=== PATIENT | male | born 1985 | race Caucasian/White ===

== ENCOUNTER 2016-10-08 19:38 | Emergency (ER) | payer SELFPAY ==
[2016-10-08] MEDS ORDERED: AMOXicillin 250 MG CAP ONE (19:51)
[2016-10-08] MEDS ORDERED: HYDROcodone/Acetaminophen 10/325 mg Tablet ONE (19:51)
[2016-10-08] MEDS ORDERED: Dexamethasone 4 mg/ml Vial ONE (19:51)
--- NOTE | 2016-10-08 20:48 | ERRECORD ---
[facility] EMERGENCY RECORD HPI TOOTHACHE CHIEF COMPLAINT: Patient presents for evaluation of toothache. (19:49 MBRI) HISTORIAN: History provided by patient. (19:49 MBRI) LOCATION: Symptoms are localized, most severe to Right upper jaw and cheek region. (19:50 MBRI) QUALITY: Pain is dull in nature, described as aching. (19:49 MBRI) SEVERITY: Maximum severity of symptoms moderate, Currently symptoms are moderate. (19:49 MBRI) TIME COURSE: Gradual onset of symptoms, weeks. (19:49 MBRI) ASSOCIATED WITH: Denies any other complaints. (19:49 MBRI) EXACERBATED BY: Patient's condition exacerbated by chewing. (19:49 MBRI) RELIEVED BY: Patient's condition relieved by nothing. (19:49 MBRI) ROS (19:49 MBRI) CONSTITUTIONAL: Historian denies chills, denies fatigue, denies fever. EYES: Negative eye review of systems. ENT: Negative ears, nose, throat review of systems. CARDIOVASCULAR: Negative cardiovascular review of systems. RESPIRATORY: Negative respiratory review of systems. GI: Historian denies abdominal pain, denies diarrhea, denies nausea, denies vomiting. PAST MEDICAL HISTORY MEDICAL HISTORY: No past medical history. (19:48 DZAN) MALE SURGICAL HISTORY: Patient has no surgical history. (19:48 DZAN) PSYCHIATRIC HISTORY: No previous psychiatric history. (19:48 DZAN) SOCIAL HISTORY: Patient drinks socially, Patient denies drug use, Patient currently uses tobacco, smokes cigarettes, daily, Patient smokes 1 pack per day. (19:48 DZAN) NOTES: Nursing records reviewed, Agree with nursing records, Medication list reviewed. (19:49 MBRI) KNOWN ALLERGIES Shellfish Containing Products CURRENT MEDICATIONS (19:43 DZAN) None VITAL SIGNS VITAL SIGNS: BP: 141/85, Pulse: 96, Resp: 18 (Non-Labored), Temp: 97.8 (Oral), Pain: 7, O2 sat: 97 on Room Air, Time: 10/08/2016 19:41. (19:41 DZAN) BP: 115/79, Pulse: 91, Resp: 16 (Non-Labored), O2 sat: 98 on Room Air, Time: 10/08/2016 19:45. (19:45 DZAN) &a-1R&a+25V*p+0X*y7505C*c202B*c15G*c2P*p-0X&a-25V&a+1R Name: Alfred Rodríguez : 1985 M31 MedRec: [id number] AcctNum: [id number] Prepared: [facility] Oct 11, 2016 10:53 by Interface Page 1 of 3 D [facility] EMERGENCY RECORD PHYSICAL EXAM (19:49 MBRI) CONSTITUTIONAL: Vital signs reviewed, Patient appears non toxic, Patient alert and oriented to person, place and time. HEAD: Head exam normal, Patient describes pain as aching pain to right maxillary area, right mandibular jaw, with swelling noted to this area. No erythema noted. No fluctuence ntoed. EYES: Eye exam included findings of eyelids normal to inspection, Extraocular muscles intact. ENT: Ear exam normal, Nose exam normal, Pharynx exam normal, Uvula exam normal, Tonsil exam normal, Mouth exam included findings of, no lesions, no lacerations, Tongue not elevated, Teeth with, dental caries, fractures. NECK: Neck exam included findings of normal range of motion, Trachea midline, Thyroid normal, no cervical adenopathy. RESPIRATORY CHEST: Respiratory and chest exam normal. SKIN: Skin exam normal. LYMPHATIC: Lymphatic exam included findings of cervical nodes normal, Submandibular normal. MEDICATION ADMINISTRATION SUMMARY Drug Name: Decadron injection, Dose Ordered: 10 mg, Route: IV Push, Status: Canceled, Time: 19:50 10/08/2016, Drug Name: *Decadron injection, Dose Ordered: 10 mg, Route: Intramuscular, Status: Given, Time: 19:59 10/08/2016, Drug Name: Amoxil, Dose Ordered: 1000 mg, Route: Oral, Status: Given, Time: 19:57 10/08/2016, Drug Name: HYDROcodone-acetaminophen, Dose Ordered: 10/325 mg, Route: Oral, Status: Given, Time: 19:57 10/08/2016, *Additional information available in notes, Detailed record available in Medication Service section. PROBLEM LIST No recorded problems DIAGNOSIS (20:09 MBRI) FINAL: PRIMARY: dental abscess with facial cellulitis. PRESCRIPTION (19:54 MBRI) acetaminophen-codeine: TABLET : 300 mg-30 mg : ORAL : Quantity: 1 Unit: tab(s) Route: ORAL Schedule: every 4 hours prn Dispense: 20 May substitute. Refills: No Refills . NOTES: No refills. Motrin: TABLET : 800 mg : ORAL : Quantity: 1 Unit: tab(s) Route: ORAL Schedule: every 8 hours PRN Dispense: 30 May substitute. Refills: No Refills . NOTES: ^s=No refills No refills. PC Pen V K: TABLET : 500 mg : ORAL : Quantity: 1 Unit: &a-1R&a+25V*p+0X*h3983Y*c202B*c15G*c2P*p-0X&a-25V&a+1R Name: Alfred Rodríguez : 1985 2 MedRec: [id number] AcctNum: [id number] Prepared: SatOct 11, 2016 10:53 by Interface Page 2 of 3 pMD [facility] EMERGENCY RECORD tab(s) Route: ORAL Schedule: 4 times a day Dispense: 40 May substitute. Refills: No Refills . NOTES: ^s=^s=No refills No refills No refills. DISPOSITION PATIENT: Disposition Type: Discharge, Disposition: *Discharge Home, Condition: Fair. (20:09 BIRD) Patient left the department. (20:24 IVANNA) Mccann: IVANNA=USAMA Villaseñor, Jonas ROMANRI=DO Burr Matthew &a-1R&a+25V*p+0X*f3350S*c202B*c15G*c2P*p-0X&a-25V&a+1R Name: Alfred Rodríguez : 1985 M31 MedRec: [id number] AcctNum: [id number] Prepared: SatOct 11, 2016 10:53 by Interface Page 3 of 3 pMD MTDD
--- NOTE | 2016-10-08 21:02 | PICIS ---
[facility] EMERGENCY RECORD TRIAGE (SatOct 08, 2016 19:42 DZAN) TRIAGE NOTES: PT REPOTS TOOTHACHE X1 WEEK. (SatOct 08, 2016 19:42 DZAN) PATIENT: NAME: Alfred Rodríguez, AGE: 31, GENDER: male, : Sat1985, TIME OF GREET: SatOct 08, 2016 19:39, PREFERRED LANGUAGE: Lithuanian, ETHNICITY: Not or , ECODE BILLING MAP: [facility], SSN: [id number], KG WEIGHT: 81.65, , , PERSON ID: [id number], PAYMENT: [employer] Self Pay, PCP: NONE. (SatOct 08, 2016 19:42 DZAN) Zip Code: [id number], PHONE: . (19:54) COMPLAINT: DENTAL PAIN. (SatOct 08, 2016 19:42 DZAN) ADMISSION: URGENCY: 5 Fast Track, ADMISSION SOURCE: Home, TRANSPORT: Walk-in, BED: TRIAGE. (SatOct 08, 2016 19:42 DZAN) IMMUNIZATIONS: Flu vaccine not up to date, Tetanus immunization up to date, Pneumococcal vaccine not up to date. (19:48 DZAN) SIRS SCORING: Heart Rate 55-109 (0), Temp range 96.8-101.1 (0), respiratory rate 12-24 (0), Mental Status altered: no (0). (19:48 DZAN) TRIAGE SCREENING: Patient denies suicidal ideation, Patient denies presence of domestic violence. (19:48 DZAN) TREATMENTS IN PROGRESS: Treatments given Prehospital: NONE. (19:48 DZAN) PROVIDERS: TRIAGE NURSE: Jonas Villaseñor RN. (SatOct 08, 2016 19:42 DZAN) VITAL SIGNS: BP 141/85, Pulse 96, Resp 18, (Non-Labored), Temp 97.8, (Oral), Pain 7, O2 Sat 97, on Room Air, Time 10/08/2016 19:41. (19:41 DZAN) KNOWN ALLERGIES Shellfish Containing Products CURRENT MEDICATIONS (19:43 DZAN) None VITAL SIGNS VITAL SIGNS: BP: 141/85, Pulse: 96, Resp: 18 (Non-Labored), Temp: 97.8 (Oral), Pain: 7, O2 sat: 97 on Room Air, Time: 10/08/2016 19:41. (19:41 DZAN) BP: 115/79, Pulse: 91, Resp: 16 (Non-Labored), O2 sat: 98 on Room Air, Time: 10/08/2016 19:45. (19:45 DZAN) NURSING ASSESSMENT: DENTAL (19:45 DZAN) CONSTITUTIONAL: Complex assessment performed, Patient arrives ambulatory, Gait steady, History obtained from patient, Patient appears, uncomfortable, Patient cooperative, Patient alert, Oriented to person, place and time, Skin warm, Skin dry, Skin normal in color, Mucous membranes pink, Mucous membranes moist, Patient complains of DENTAL PAIN. &a-1R&a+25V*p+0X*h7254F*c202B*c15G*c2P*p-0X&a-25V&a+1R Name: Alfred Rodríguez : 1985 M31 MedRec: [id number] AcctNum: [id number] Prepared: [facility] Oct 11, 2016 10:53 by Interface Page 1 of 6 pMD [facility] EMERGENCY RECORD DENTAL: Dental assessment findings include mouth with, poor dental hygiene, Teeth abnormal:, avulsed primary tooth (teeth), color change to primary tooth (teeth), missing primary tooth (teeth), gums tender, gums red, no associated bleeding, Associated with, swelling to the right side of face. NOTES: Notes: PT REPORTS DENTAL PAIN X1 WEEK, PAIN INCREASED OVER PAST 3 DAYS. REPORTS DIFFICULTY EATING. DENIES FEVER. NAD NOTED. SAFETY: Side rails up, Cart/Stretcher in lowest position, Family at bedside, Call light within reach, Hospital ID band on. NURSING PROCEDURE: DISCHARGE NOTE (20:23 DZAN) DISCHARGE: Patient discharged to home, ambulating without assistance, family driving, accompanied by //partner, Summary of Care printed/ provided, Transition record given to patient, Discharge instructions given to patient, Simple or moderate discharge teaching performed, by USAMA FLOYD, Prescriptions given and instructions on side effects given, Above person(s) verbalized understanding of discharge instructions and follow-up care, Patient instructed not to drive home, Patient treated and evaluated by physician. BELONGINGS: Belongings and valuables with patient upon arrival to the Emergency Department include:, Belongings and valuables with patient at time of discharge include:, Belongings remain with patient, Valuables remain with patient. SAFETY: Side rails up, Cart/Stretcher in lowest position, Family at bedside, Call light within reach, Hospital ID band on. MEDICATION ADMINISTRATION SUMMARY Drug Name: Decadron injection, Dose Ordered: 10 mg, Route: IV Push, Status: Canceled, Time: 19:50 10/08/2016, Drug Name: *Decadron injection, Dose Ordered: 10 mg, Route: Intramuscular, Status: Given, Time: 19:59 10/08/2016, Drug Name: Amoxil, Dose Ordered: 1000 mg, Route: Oral, Status: Given, Time: 19:57 10/08/2016, Drug Name: HYDROcodone-acetaminophen, Dose Ordered: 10/325 mg, Route: Oral, Status: Given, Time: 19:57 10/08/2016, *Additional information available in notes, Detailed record available in Medication Service section. MEDICATION SERVICE Amoxil: Order: Amoxil (amoxicillin trihydrate) - Dose: 1000 mg : Oral Schedule: Now Ordered by: Michael Burr DO Entered by: Michael Burr DO SatOct 08, 2016 19:47 , Acknowledged by: Jonas Villaseñor RN SatOct 08, 2016 19:48 &a-1R&a+25V*p+0X*p4532U*c202B*c15G*c2P*p-0X&a-25V&a+1R Name: Rodríguez Alfred L : 1985 M31 MedRec: [id number] AcctNum: [id number] Prepared: SatOct 11, 2016 10:53 by Interface Page 2 of 6 pMD [facility] EMERGENCY RECORD Documented as given by: Jonas Villaseñor RN SatOct 08, 2016 19:57 Patient, Medication, Dose, Route and Time verified prior to administration. Amount given: 1000 mg, Site: Medication administered P.O., Verified blood culture collection prior to antibiotic administration, Correct patient, time, route, dose and medication confirmed prior to administration, Patient advised of actions and side-effects prior to administration, Allergies confirmed and medications reviewed prior to administration, Patient in position of comfort, Side rails up, Cart in lowest position, Family at bedside. Decadron injection: Order: Decadron injection (dexamethasone sod phosphate) - Dose: 10 mg : Intramuscular Notes: Written Order Ordered by: Michael Burr DO Entered by: Jonas Villaseñor RN SatOct 08, 2016 19:50 , Acknowledged by: Jonas Villaseñor RN SatOct 08, 2016 19:50 Documented as given by: Jonas Villaseñor RN SatOct 08, 2016 19:59 Patient, Medication, Dose, Route and Time verified prior to administration. IM medication, Amount given: 10 mg, Medication administered to left buttock, Correct patient, time, route, dose and medication confirmed prior to administration, Patient advised of actions and side-effects prior to administration, Allergies confirmed and medications reviewed prior to administration, Patient in position of comfort, Side rails up, Cart in lowest position, Family at bedside. HYDROcodone-acetaminophen: Order: HYDROcodone-acetaminophen (hydrocodone bitartrate/acetaminophen) - Dose: 10/325 mg : Oral Schedule: Now Ordered by: Michael Burr DO Entered by: Michael Burr DO SatOct 08, 2016 19:49 , Acknowledged by: Jonas Villaseñor RN SatOct 08, 2016 19:49 Documented as given by: Jonas Villaseñor RN SatOct 08, 2016 19:57 Patient, Medication, Dose, Route and Time verified prior to administration. Amount given: 10/325 mg, Site: Medication administered P.O., Patient appears Awake and alert- acceptable, Correct patient, time, route, dose and medication confirmed prior to administration, Patient advised of actions and side-effects prior to administration, Allergies confirmed and medications reviewed prior to administration, Patient in position of comfort, Side rails up, Cart in lowest position, Family at bedside. (CANCELED) Decadron injection: Order: Decadron injection (dexamethasone sod phosphate) - Dose: 10 mg : IV Push Schedule: Now Ordered by: Michael Burr DO Entered by: Michael Burr DO SatOct 08, 2016 19:48 Canceled by: Jonas Villaseñor RN. SatOct 08, 2016 19:50 Cancel reason: Change in medication plan. &a-1R&a+25V*p+0X*t0975D*c202B*c15G*c2P*p-0X&a-25V&a+1R Name: Alfred Rodríguez : 1985 M31 MedRec: [id number] AcctNum: [id number] Prepared: [facility] Oct 11, 2016 10:53 by Interface Page 3 of 6 pMD [facility] EMERGENCY RECORD HPI TOOTHACHE CHIEF COMPLAINT: Patient presents for evaluation of toothache. (19:49 MBRI) HISTORIAN: History provided by patient. (19:49 MBRI) LOCATION: Symptoms are localized, most severe to Right upper jaw and cheek region. (19:50 MBRI) QUALITY: Pain is dull in nature, described as aching. (19:49 MBRI) SEVERITY: Maximum severity of symptoms moderate, Currently symptoms are moderate. (19:49 MBRI) TIME COURSE: Gradual onset of symptoms, weeks. (19:49 MBRI) ASSOCIATED WITH: Denies any other complaints. (19:49 MBRI) EXACERBATED BY: Patient's condition exacerbated by chewing. (19:49 MBRI) RELIEVED BY: Patient's condition relieved by nothing. (19:49 MBRI) ROS (19:49 MBRI) CONSTITUTIONAL: Historian denies chills, denies fatigue, denies fever. EYES: Negative eye review of systems. ENT: Negative ears, nose, throat review of systems. CARDIOVASCULAR: Negative cardiovascular review of systems. RESPIRATORY: Negative respiratory review of systems. GI: Historian denies abdominal pain, denies diarrhea, denies nausea, denies vomiting. PAST MEDICAL HISTORY MEDICAL HISTORY: No past medical history. (19:48 DZAN) MALE SURGICAL HISTORY: Patient has no surgical history. (19:48 DZAN) PSYCHIATRIC HISTORY: No previous psychiatric history. (19:48 DZAN) SOCIAL HISTORY: Patient drinks socially, Patient denies drug use, Patient currently uses tobacco, smokes cigarettes, daily, Patient smokes 1 pack per day. (19:48 DZAN) NOTES: Nursing records reviewed, Agree with nursing records, Medication list reviewed. (19:49 MBRI) PHYSICAL EXAM (19:49 MBRI) CONSTITUTIONAL: Vital signs reviewed, Patient appears non toxic, Patient alert and oriented to person, place and time. HEAD: Head exam normal, Patient describes pain as aching pain to right maxillary area, right mandibular jaw, with swelling noted to this area. No erythema noted. No fluctuence ntoed. EYES: Eye exam included findings of eyelids normal to inspection, Extraocular muscles intact. ENT: Ear exam normal, Nose exam normal, Pharynx exam normal, Uvula exam normal, Tonsil exam normal, Mouth exam included findings of, no lesions, no lacerations, Tongue not elevated, Teeth with, dental caries, fractures. NECK: Neck exam included findings of normal range of motion, &a-1R&a+25V*p+0X*i2649B*c202B*c15G*c2P*p-0X&a-25V&a+1R Name: Alfred Rodríguez : 1985 M31 MedRec: [id number] AcctNum: [id number] Prepared: [facility] Oct 11, 2016 10:53 by Interface Page 4 of 6 pMD [facility] EMERGENCY RECORD Trachea midline, Thyroid normal, no cervical adenopathy. RESPIRATORY CHEST: Respiratory and chest exam normal. SKIN: Skin exam normal. LYMPHATIC: Lymphatic exam included findings of cervical nodes normal, Submandibular normal. EVENTS TRANSFER: Triage to Emergency Triage. (SatOct 08, 2016 19:42 DZAN) Emergency Triage to Emergency Room -02. (19:43 DZAN) Removed from Emergency Emergency Room -02. (20:24 DZAN) O2SAT INTERPRETATION (19:53 MBRI) O2SAT: Oxygen saturation interpretation: Normal. PROBLEM LIST No recorded problems DIAGNOSIS (20:09 MBRI) FINAL: PRIMARY: dental abscess with facial cellulitis. DISPOSITION PATIENT: Disposition Type: Discharge, Disposition: *Discharge Home, Condition: Fair. (20:09 MBRI) Patient left the department. (20:24 DZAN) INSTRUCTION (20:10 MBRI) DISCHARGE: DENTAL ABSCESS W/ FACIAL CELLULITIS, DENTAL CAVITY. FOLLOWUP: [facility], [facility], [address] [address], , [place], JAN[place], Dentistry, [address] [address], [id number], [facility], Dentistry, [address] [address], , Follow up with Primary Care Physician in 7-10 days, Follow up with Specialist as soon as possible. SPECIAL: Please return for any further issues or concerns, we would be happy to see you. We hope you feel better soon. Follow-up with your PCP Tylenol or Advil for Pain Return to work in 2 days. PRESCRIPTION (19:54 MBRI) acetaminophen-codeine: TABLET : 300 mg-30 mg : ORAL : Quantity: 1 Unit: tab(s) Route: ORAL Schedule: every 4 hours prn Dispense: 20 May substitute. Refills: No Refills . NOTES: No refills. Motrin: TABLET : 800 mg : ORAL : Quantity: 1 Unit: tab(s) Route: ORAL Schedule: every 8 hours PRN Dispense: 30 May substitute. Refills: No Refills . &a-1R&a+25V*p+0X*j4527T*c202B*c15G*c2P*p-0X&a-25V&a+1R Name: Alfred Rodríguez : 1985 M31 MedRec: [id number] AcctNum: [id number] Prepared: SatOct 11, 2016 10:53 by Interface Page 5 of 6 pMD [facility] EMERGENCY RECORD NOTES: ^s=No refills No refills. PC Pen V K: TABLET : 500 mg : ORAL : Quantity: 1 Unit: tab(s) Route: ORAL Schedule: 4 times a day Dispense: 40 May substitute. Refills: No Refills . NOTES: ^s=^s=No refills No refills No refills. IMAGING (22:31 IVANNA) *DISCHARGE INSTRUCTIONS RECEIPT: Image captured from scanner. Page 2 added. Image captured from scanner. *SUPPLY CHARGE SHEET: Image captured from scanner. ADMIN (SatOct 11, 2016 10:47 MBRI) DIGITAL SIGNATURE: DO Burr Matthew. Mccann: IVANNA=USAMA Villaseñor, Jonas PANG=DO Burr Matthew &a-1R&a+25V*p+0X*t6983G*c202B*c15G*c2P*p-0X&a-25V&a+1R Name: Alfred Rodríguez : 1985 2 MedRec: [id number] AcctNum: [id number] Prepared: SatOct 11, 2016 10:53 by Interface Page 6 of 6 pMD [facility] MEDICATION RECONCILIATION You were seen in the Emergency Department on: SatOct 08, 2016 KNOWN ALLERGIES Shellfish Containing Products MEDICATIONS GIVEN WHILE IN THE EMERGENCY DEPARTMENT Amoxil (amoxicillin trihydrate) - Dose: 1000 milligram(s) : Oral HYDROcodone-acetaminophen (hydrocodone bitartrate/acetaminophen) - Dose: 10/325 milligram(s) : Oral Decadron injection (dexamethasone sod phosphate) - Dose: 10 milligram(s) : Intramuscular HOME MEDICATIONS None Notes from the emergency department Reviewed with family PRESCRIPTIONS (3) Printed (3) acetaminophen-codeine : TABLET : 300 mg-30 mg : ORAL Quantity: 1, Unit: tab(s), Route: ORAL, Schedule: every 4 hours prn, Dispense: 20 Motrin : TABLET : 800 mg : ORAL Quantity: 1, Unit: tab(s), Route: ORAL, Schedule: every 8 hours PRN, Dispense: 30 &a-1R&a+25V*p+0X*q6120J*c202B*c15G*c2P*p-0X&a-25V&a+1R Name: Alfred Rodríguez : 1985 2 MedRec: [id number] AcctNum: [id number] Prepared: SatOct 11, 2016 10:53 by Interface pMD [facility]
== END 2016-10-08 20:23 | disposition home or self-care (01) ==
LOC: BURERS 19:38
DX: K04.7 Periapical abscess without sinus (principal); L03.211 Cellulitis of face; F17.210 Nicotine dependence, cigarettes, uncomplicated
CPT/HCPCS: 96372; J1100

== ENCOUNTER 2016-12-18 17:22 | Emergency (ER) | payer OTHER, SELFPAY | END 2016-12-18 17:44 | disposition home or self-care (01) | LOC: BURERS 17:22 | DX: K08.89 Other specified disorders of teeth and supporting structures (principal); Z79.899 Other long term (current) drug therapy; F17.210 Nicotine dependence, cigarettes, uncomplicated | CPT/HCPCS: 99282 ==

== ENCOUNTER 2024-02-22 11:07 | Emergency (ER) | payer SELFPAY ==
[2024-02-22] MEDS ORDERED: Dexamethasone 10 MG/ML VIAL ONE (11:58)
== END 2024-02-22 12:13 | disposition home or self-care (01) ==
LOC: BURERS 11:07
DX: J32.1 Chronic frontal sinusitis (principal); F17.210 Nicotine dependence, cigarettes, uncomplicated
CPT/HCPCS: 96372; 99283; J1100